=== PATIENT | male | born 1965 | race Caucasian/White ===

== ENCOUNTER 2025-02-21 09:42 | Emergency (ER) | payer SELFPAY ==
--- NOTE | 2025-02-21 | ECG_ITS ---
Test Reason : MED NON-COMPLIANCE Blood Pressure : */* mmHG Vent. Rate : 59 BPM Atrial Rate : 59 BPM P-R Int : 198 ms QRS Dur : 130 ms QT Int : 394 ms P-R-T Axes : 74 -20 -47 degrees QTcB Int : 390 ms Sinus bradycardia Left ventricular hypertrophy with QRS widening and repolarization abnormality ( Nicholas product ) Abnormal ECG No previous ECGs available Referred By: Generic ED Physician Electronically Signed By: CHASE DELGADO
--- NOTE | ~2025-02-21 | US_ITS ---
CLINICAL HISTORY: rule out DVT, SWELLING Venous duplex ultrasound left lower extremity Comparison: None Findings: The visualized deep veins are fully compressible with normal Doppler color flow and spectral tracings. 32 mm Altamirano's cyst is present. Within the posteromedial calf in the area of clinical tenderness there is a 10.8 x 1.8 x 5.7 cm fluid collection. IMPRESSION: 1. Negative for left lower extremity deep vein thrombosis. 2. Altamirano's cyst. 3. Fluid collection within the calf. This may represent hematoma or abscess. This document has been electronically signed by: Marcin Noel MD on 02/21/2025 12:48:43
[2025-02-21 10:09] VITALS: BP 129/91; PULSE 64; RESP 20; TEMP 37.2; O2SAT 96; BMI 36.3
[2025-02-21 11:02] LABS: MANUAL DIFF FLAG NO
[2025-02-21 11:03] LABS: Basophils Absolute Auto 0.1 X10*3/uL (0.0-0.2); Basophils Percent Auto 0.7 % (0-2); Eosinophils Absolute Auto 0.2 X10*3/uL (0.0-0.4); Eosinophils Percent Auto 2.6 % (0-4); Hematocrit 38.4 % (42.0-52.0); Hemoglobin 13.3 g/dl (14.0-18.0); Imm Gran Abs Auto 0.03 X10*3/uL (0.00-0.03); Imm Gran Pct Auto 0.4 % (0.0-0.4); Lymphocytes Percent Auto 23.1 % (20-40); Mean Corpuscular HGB Conc 34.6 g/dl (31.0-36.0); Mean Corpuscular Hemoglobin 28.4 pg (27.0-33.0); Mean Corpuscular Volume 81.9 fL (80.0-98.0); Mean Platelet Volume 8.9 fL (9.4-12.4); Monocytes Absolute Auto 0.7 X10*3/uL (0.1-1.2); Monocytes Percent Auto 8.3 % (2-11); Neutrophils Absolute Auto 5.5 x10*3/uL (2.0-8.3); Neutrophils Percent Auto 64.9 % (45-73); Platelet Count 281 X10*3/uL (160-400); Red Blood Count 4.69 X10*6/uL (4.60-5.80); Red Cell Distribution Width 13.7 % (11.0-16.0); White Blood Count 8.4 X10*3/uL (4.8-10.8)
[2025-02-21 11:08] LABS: Prothrombin Time 11.8 SEC (10.9-12.4)
[2025-02-21 11:16] LABS: Alanine Aminotransferase 24 U/L (0-40); Alkaline Phosphatase 81 U/L (39-117); Anion Gap 13 (12-20); Aspartate Amino Transferase 22 U/L (5-37); Bilirubin Total 0.3 mg/dL (0.0-1.0); Blood Urea Nitrogen 12 mg/dL (9-16); Calcium 9.6 mg/dL (8.4-10.2); Carbon Dioxide 25 mmol/L (22-29); Chloride 105 mmol/L (96-108); Creatinine Clr Calc Pharmacy 122.3; Estimated Glomerular Filt Rate > 60; Glucose Random 99 mg/dL (60-115); Potassium 4.3 mmol/L (3.3-5.1); Sodium 139 mmol/L (135-145)
--- NOTE | 2025-02-21 12:39 | ED_ITS ---
HPI - Extremity Problem General Chief complaint: Extremity Injury, Lower Stated complaint: left leg swollen Time Seen by Provider: 02/21/25 12:39 Source: patient Mode of arrival: ambulatory Limitations: no limitations History of Present Illness ED Provider: Yair Christie PA-C HPI Narrative: 59 yo male with history of HLD, hx cardiac arrest in the past, hx paroxysmal afib not on anticoagulation who presents to the ER for evaluation of left lower leg pain and swelling for the last 2-3 weeks. He states it feels like he went to the gym too hard and the muscle is strained. The pain is starting to radiate from the proximal calf down to the foot. The lower leg is swollen. No numbness or tingling. no chest pain or SOB. no hx DVT in the past. No recent travel. No injury. he works on his feet all day and has worsening pain after being on his feet for prolonged amount of time. MD Complaint: extremity pain and extremity swelling Onset (ago): week(s) Pain Consistency: constant Location: left and lower extremity Quality: aching Radiation: distal Relieving factors: rest Exacerbating factors: weight bearing and palpation Associated symptoms: denies other symptoms Related Data Previous Rx's ?Medication ?Instructions ?Recorded cyclobenzaprine 10 mg tablet 10 mg PO BID PRN muscle spasm #7 02/21/25 tabs naproxen 500 mg tablet 500 mg PO BID PRN pain #20 tabs 02/21/25 Allergies Allergy/AdvReac Type Severity Reaction Status Date / Time Penicillins [PCN] Allergy Rash Verified 02/21/25 10:13 Review of Systems 2 Review of Systems: Yes all other systems are reviewed and are negative [facility] Social History Social History Smoked in Last 30 Days: No Use of substances other than those prescribed or required for medical reasons: No Advance Directives: No Advance Directives Information Provided: Yes Physical Exam 2 Vital Signs: Vital Signs: Last Vital Signs Temp 98.9 F 02/21/25 13:40 Pulse 64 02/21/25 13:40 Resp 20 02/21/25 13:40 BP 129/91 H 02/21/25 13:40 Pulse Ox 96 02/21/25 13:40 O2 Del Method Room Air 02/21/25 13:40 BMI result Body Mass Index 36.3 Appearance: Alert. Oriented X3. No acute distress. HEENT: normal inspection CVS: Normal heart rate and rhythm. Pulses normal. Respiratory: No respiratory distress. speaking in complete sentences Skin: Skin warm and dry. Normal skin color. Normal skin turgor. No rashes. Extremities: left lower leg more swollen than right lower leg, 1+ edema. tenderness to the proximal medial calf without overlying erythema. no induration or fluctuance. popliteal fullness on the left. NV intact distally Neuro: Oriented X 3. No motor deficit. No sensory deficit. steady gait Medical Decision Making Medical Decision Making [facility] Narrative: 59 yo male presenting with nontrauamtic left lower leg pain x2-3 weeks. US showing a 10x2x5 fluid collection c/w either abscess or hematoma. clinically abscess less likely without overlying signs of infection, no leukocytosis on labs. discussed possible needle aspiration w/ Dr. Archer and decision made to treat with conservative management today rather than introduce risks of infection and bleeding. leg wrapped in pastor wrap for compression. patient counseled on dx and tx along w/ return precautions. stable for d/c home - will refer to ortho for further evaluation as well. pt agrees w/ plan and all questions answered Differential Diagnosis Differential Diagnoses: The differential diagnosis associated with the presentation includes DVT, muscle strain, hematoma, abscess, muscle tear, bakers cyst, compartment syndrome Lab Data [facility] Lab Attestation statement: I reviewed the patient's lab results. mild anemia 02/21/25 10:58 02/21/25 10:58 Labs: Lab Results 02/21/25 Range/Units 10:58 WBC 8.4 (4.8-10.8) X10*3/uL RBC 4.69 (4.60-5.80) X10*6/uL Hgb 13.3 L (14.0-18.0) g/dl Hct 38.4 L (42.0-52.0) % MCV 81.9 (80.0-98.0) fL MCH 28.4 (27.0-33.0) pg MCHC 34.6 (31.0-36.0) g/dl RDW 13.7 (11.0-16.0) % Plt Count 281 (160-400) X10*3/uL MPV 8.9 L (9.4-12.4) fL Immature Gran % (Auto) 0.4 (0.0-0.4) % Neut % (Auto) 64.9 (45-73) % Lymph % (Auto) 23.1 (20-40) % [place] % (Auto) 8.3 (2-11) % Eos % (Auto) 2.6 (0-4) % Baso % (Auto) 0.7 (0-2) % Lymph # (Auto) 2.0 (1.2-4.9) X10*3/uL [place] # (Auto) 0.7 (0.1-1.2) X10*3/uL Eos # (Auto) 0.2 (0.0-0.4) X10*3/uL Baso # (Auto) 0.1 (0.0-0.2) X10*3/uL Abs Immat Gran (auto) 0.03 (0.00-0.03) X10*3/uL Absolute Neuts (auto) 5.5 (2.0-8.3) x10*3/uL Absolute Nucleated RBC 0.000 (0.0-0.012) X10*3/uL Nucleated RBC % (auto) 0.0 (0.0-0.2) /100WBC PT 11.8 (10.9-12.4) SEC INR 1.0 (0.9-1.1) Sodium 139 (135-145) mmol/L Potassium 4.3 (3.3-5.1) mmol/L Chloride 105 (96-108) mmol/L Carbon Dioxide 25 (22-29) mmol/L Anion Gap 13 (12-20) BUN 12 (9-16) mg/dL Creatinine 0.77 (0.5-1.4) mg/dL Estim Creat Clear Calc 122.3 Estimated GFR > 60 Random Glucose 99 (60-115) mg/dL Calcium 9.6 (8.4-10.2) mg/dL Total Bilirubin 0.3 (0.0-1.0) mg/dL AST 22 (5-37) U/L ALT 24 (0-40) U/L Alkaline Phosphatase 81 (39-117) U/L Total Protein 7.0 (6.5-8.0) g/dL Albumin 4.0 (3.5-5.0) g/dL Independent Interpretation I performed an independent interpretation of an: EKG and Ultrasound Interpretation: simple appearing fluid collection in the lower leg, no cobblestoning ekg with sinus bradycardia, hr 59, normal SC interval, LVH changes with repolarization in the precordial leads Radiology Impression Discussion of test interpretation with radiology: I have reviewed the radiologist's reading. Radiologist Impression: CLINICAL HISTORY: rule out DVT, SWELLING Venous duplex ultrasound left lower extremity Comparison: None Findings: The visualized deep veins are fully compressible with normal Doppler color flow and spectral tracings. 32 mm Altamirano's cyst is present. Within the posteromedial calf in the area of clinical tenderness there is a 10.8 x 1.8 x 5.7 cm fluid collection. IMPRESSION: 1. Negative for left lower extremity deep vein thrombosis. 2. Altamirano's cyst. 3. Fluid collection within the calf. This may represent hematoma or abscess. External Record Review External record reviewed: Outpatient record, Prior outpatient labs and Prior outpatient radiology Tests considered The following testing was considered but not selected: CT scan considered but deferred as suspicion for abscess is very low Prescription Management I considered prescription management with: Pain Medication and Antibiotic Chronic Conditions Patient?s care impacted by: Other (HLD, afib) Critical Care Time Critical Care Time Critical Care Time: No Discharge Plan Discharge Clinical Impression: Hematoma of lower leg Patient Disposition: Home, Self-Care Instructions: Hematoma (ED) Additional Instructions: your lab work was reassuring your ultrasound showed a fluid collection, likely a hematoma (blood collection) and NOT an infection as there is no redness over the area and your labs were normal recommend rest, elevation when possible, PASTOR wrap for compression take the prescribed medicatons as needed for pain and muscle spasm recommend following up with orthopedics for further evaluation follow up with your PCP as well If you develop new or worsening symptoms call 911 or come back to the ER for further evaluation. CLINICAL HISTORY: rule out DVT, SWELLING Venous duplex ultrasound left lower extremity Comparison: None Findings: The visualized deep veins are fully compressible with normal Doppler color flow and spectral tracings. 32 mm Altamirano's cyst is present. Within the posteromedial calf in the area of clinical tenderness there is a 10.8 x 1.8 x 5.7 cm fluid collection. IMPRESSION: 1. Negative for left lower extremity deep vein thrombosis. 2. Altamirano's cyst. 3. Fluid collection within the calf. This may represent hematoma or abscess. Prescriptions: New naproxen 500 mg tablet 500 mg PO BID PRN (Reason: pain) Qty: 20 0RF cyclobenzaprine 10 mg tablet 10 mg PO BID PRN (Reason: muscle spasm) Qty: 7 0RF Referrals: [facility] [Provider Group] (left calf fluid collection c/w hematoma) [facility] [Primary Care Provider] - Interventions: ED Discharge Assessment Last Done: 02/21/25 13:40 Discharge Date/Time: 02/21/25 13:42 Print Language: Hungarian
[2025-02-21 13:40] VITALS: BP 129/91; PULSE 64; RESP 20; TEMP 37.2; O2SAT 96
== END 2025-02-21 13:42 | disposition home or self-care (01) ==
PROVIDERS: Emergency Provider Emergency Medicine; PCP Dentist General Practice
DX: R60.0 Localized edema (principal); R00.1 Bradycardia, unspecified; M79.605 Pain in left leg; Z79.899 Other long term (current) drug therapy
CPT/HCPCS: 36415; 80053; 85025; 85610; 93005; 93971; 99284

== ENCOUNTER → 2025-02-21 10:37 | Outpatient (BNV) | payer SELFPAY | PROVIDERS: Emergency Provider Emergency Medicine; PCP Dentist General Practice; Visit Provider Radiology Diagnostic Radiology | DX: M71.22 Synovial cyst of popliteal space [Baker], left knee (principal) | CPT/HCPCS: 93971 ==

== ENCOUNTER → 2025-02-21 10:50 | Outpatient (BNV) | payer SELFPAY | PROVIDERS: Emergency Provider Emergency Medicine; PCP Dentist General Practice; Visit Provider Internal Medicine | DX: R00.1 Bradycardia, unspecified (principal); I51.7 Cardiomegaly | CPT/HCPCS: 93010 ==

== ENCOUNTER 2025-03-06 09:03 | Emergency (ER) | payer SELFPAY ==
--- NOTE | ~2025-03-06 | XR_ITS ---
CLINICAL HISTORY: fish hook distal 4th finger 3 view right 4th digit Comparison: None Findings: Bones intact. No dislocations. No significant arthritic change. No erosions. There is a 4 mm curvilinear metallic focus within the soft tissues at the anterior aspect of the distal phalanx of the 4th digit. IMPRESSION: 4th digit foreign body. No osseous injury. This document has been electronically signed by: Marcin Noel MD on 03/06/2025 11:35:20
[2025-03-06 09:04] VITALS: BP 152/81; PULSE 78; RESP 18; TEMP 36.6; O2SAT 96; BMI 35.5
--- OUTSIDE RECORDS SUMMARY | 2025-03-06 09:27 | XMS_ITS | Clinical Summary ---
Author Organization [facility] Address [address] [place] [address] Care Team Providers Care Welder Tack Name Role Phone Ramos Baltazar MD Primary Care Provider [phone] Source Comments PLEASE NOTE, if this patient is a minor, it may be UNLAWFUL to discuss sensitive information that is contained in these records (such as FAMILY PLANNING, MENTAL HEALTH or SUBSTANCE ABUSE) with the minor patient's parent or other person without the patient's specific authorization.[facility] Allergies Active Allergy Reactions Criticality Noted Date Comments Penicillins Rash 09/05/2017 Medications nicotine, polacrilex, (NICORETTE) 2 mg gumIndications:E ncounter for tobacco use cessation counseling Weeks 1-6: 1 piece of gum every 1-2 hours; chew at least 9 pieces per day during the first 6 weeks to increase chances of quitting. Weeks 7-9: 1 piece of gum every 2-4 hours. Weeks 10-12: 1 piece of gum every 4-8 hours. 380 Each 1 Active cetirizine (ZYRTEC) 10 mg tabletIndication s:Seasonal allergies Take 1 Tablet by mouth once daily 90 Tablet 1 3 Active predniSONE (DELTASONE) 20 mg tabletIndication s:Chest congestion Take 2 Tablets by mouth once daily 10 Tablet 3 Active atorvastatin (LIPITOR) 20 mg tabletIndication s:Hypercholester olemia TAKE 1 TABLET BY MOUTH EVERY DAY(PLEASE SEND 90 DAY RX--- REQUIRED BY INSURNACE) 90 Tablet 3 Active escitalopram oxalate (LEXAPRO) 5 mg tabletIndication s:Adjustment reaction with anxiety and depression TAKE 1 TABLET BY MOUTH EVERY DAY 90 Tablet 4 Active ELIQUIS 5 mg tab Take 5 mg by mouth 2 (two) times daily 4 Active metoprolol tartrate (LOPRESSOR) 25 mg tablet Take 25 mg by mouth once daily 4 Active traZODone (DESYREL) 50 mg tabletIndication s:Insomnia, unspecified type TAKE 1 TABLET BY MOUTH AT BEDTIME 90 Tablet 5 Active Active Problems Problem Noted Date Diagnosed Date New onset atrial fibrillation ([facility]) 04/03/20 24 Overview (06/24/2024): Sees Cardiology Dr Maria Teresa Mancia On Eliquis 5mg bid and Metoprolol 25 mg po qd Pt was cardioverted with 200 J in to asystole which lasted approximately 20 secs. Interim Transcutaneous pacing was initiated . CPR performed with Epinephrine given -noted to go into monomorphic VT for about 25 secs . Successfully defibrillated and resuscitated back to sinus rhythm with frequent ventriculat ectopy. Given 150 mg bolus of Amiodarone. Discharged on Apixaban and Metoprolol [facility] Admission 04/02/2024 emergency department for evaluation of poison laisha all over . heart rate was found to be elevated, as high as 150s..potline monitor and he was found to be in atrial flutter versus atrial fibrillation with a rapid rate. Chest x-ray: Minimal scarring at the left lung base appears stable. EKG:Atrial fibrillation with rapid ventricular response. Received 40 mg p.o. prednisone, a total of 35 mg IVP diltiazem, 1L NS, 2 g magnesium sulfate and 1L NS. The decision was made to admit patient for medical management. Patient received a total of 35 mg IVP diltiazem and was on IV Cardizem drip . Patient received one-time dose of 5 mg p.o. Eliquis and Eliquis was sent to his preferred pharmacy for him to take 5 mg p.o. twice daily. Recommendations are for patient to remain in the hospital however he left AMA Patient should follow-up with PCP and/or cardiology for an echocardiogram and he will potentially need a cardioversion if he remains in atrial fibrillation uncontrolled. 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 Patient seen in Ed, CT scan revealed Right parotid mass and lymphadenopathy. Patient referred to oncology for biopsy of area. 10/03/17 - Patient seen by ENT, Biopsy of area performed Right Parotid 3 cm nodule Deviated septum to 4+ ? Possible Lymphoma, FU in one week. 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 Scheduled fo surgery 01/13/18 at [facility] for removal Benign Immunizations Immunization Administration Dates Next Due Flu, Preservative Free 07/01/2018 INFLUENZA, SEASONAL, INJECTABLE 07/01/2018 TDAP 09/05/2017 Social History Tobacco Use Types Packs/Day Years Used Date Smoking Tobacco: Every Day Cigarettes Smokeless Tobacco: Never Tobacco Cessation:Ready to Q uit: No; Counseling Given: Yes Comments:3/4 a pack a day Alcohol Use Standard Drinks/Week Comments Yes 12 (1 standard drink = 0.6 oz pu re alcohol) social Social Connections Answer Date Recorded Connectedness 0 09/25/2021 Financial Resource Strain Answer Date R ecorded Financial Resource Strain 0 2020 Stress Answer Date Recorded Stress 0 09/25/2021 Physical Activity Answer Date Recorded Physical Activity 0 06/15/2019 Food Insecurity Answer Date Recorded Food 0 09/25/2021 Transportation Needs Answer Date Record ed Transportation 0 09/25/2021 Housing Stability Answer Date Recorded Housing 0 09/25/2021 Safety and Environment Answer Date Pedro rded Safety 0 09/25/2021 Utilities Answer Date Recorded Utilities 0 09/25/2021 Employment Answer Date Recorded Employment 0 06/15/2019 Sex and Gender Information Value Date Recorded Sex Assigned at Male 09/05/2017 9:35 AM PST Legal Sex Male 7:11 AM PDT Gender Identity Male 09/05/2017 9:35 AM PST Sexual Orientation Straight 09/05/2017 9: 35 AM PST Last Filed Vital Signs Vital Sign Reading Time Taken Comments Blood Pressure 100/60 03/23/2022 8:39 AM EDT Pulse 78 03/23/2022 8:39 AM EDT Temperature 36.9 ??C (98.4 ??F) 03/23/2022 8:39 AM ED T Respiratory Rate 18 03/23/2022 8:39 AM EDT Oxygen Saturation - - Inhaled Oxygen Concentration - - Weight 102.5 kg (226 lb) 03/23/2022 8:39 AM EDT Height 169 cm (5' 6.54 ) 03/23/2022 8:39 AM EDT Body Mass Index 35.89 03/23/2022 8:39 AM EDT Plan of Treatment Health Maintenance Due Date Last Done Comments Imm-Hepatitis B (1 of 3 - 19 + 3-dose series) 12/23/1986 Imm-Pneumococcal (1 of 2 - PCV) 12/23/1986 CT Colonography 12/23/2012 Colonoscopy 12/23/2012 Colorectal Cancer Screening 12/23/2012 FIT/gFOBT 12/23/2012 Fecal DNA 12/23/2012 Flexible Sigmoidoscopy 12/23/2012 Anxiety Screening 09/25/2022 09/25/2021 Annual Preventive Care Visit 12/20/202211/2021, 09/23/2018, 09/05/2017 Lipid Screening 12/20/2022 12/20/2021, 09/11/2017 Hypertension Screening (#1) 03/23/2023 Imm-Zoster, Recombinant (2 of 2) 08/27/2023 07/02/20 Tobacco Cessation Counseling (#1) 03/24/2024 03/25/2023, 09/25/2021, 09/23/2018 Tobacco Screening 03/25/2024 03/25/2023, , 09/23/2018 [id number] ( season) 2024 021, 08/21/2021 Imm-Influenza (#1) 2024 07/02/2023, 0 07/01/2018, 07/01/2018 Alcohol and Drug Screen 10/21/2024 12/20/2021, 09/25 Depression Annual Screen 10/21/2024 09/25/2021 Diabetes Screening 12/20/2024 12/20/2021, 0 12/20/2021, 09/11/2017, Additional history exists Imm-DTaP/Tdap/Td (2 - Td or Tdap) 09/05/2027 017 HIV Screening Completed 12/20/2021 Hepatitis C Screening Completed 12/20/2021 Procedures Procedure Name Priority Date/Time Associated Diagnosis Comments IMAGING SCANNED DOCUMENT 02/21/2025 3:00 AM EDT IMAGING SCANNED DOCUMENT 02/21/2025 3:00 AM EDT IMAGING SCANNED DOCUMENT 12/29/2024 3:00 AM EDT HIV 1/2 AG & AB W/RFLX (4TH GEN) Routine 12/20/2021 9:22 AM EST Health care maintenance HEPATITIS C AB W/RFLX HCV RNA, QT, RT PCR Routine 12/20/2021 9:22 AM EST Health care maintenance COMPREHENSIVE METABOLIC PANEL Routine 12/20/2021 9:22 AM EST Routine general medical examination at a health care facility Other hyperlipidemia LIPID PANEL Routine 12/20/2021 9:22 AM EST Routine general medical examination at a health care facility Other hyperlipidemia from Last 3 Months or Most Recently Relevant to Health Maintenance Results * IMAGING SCANNED DOCUMENT (02/21/2025 3:00 AM EDT) Only the most recent of3 resultswithin the time period is included. 02/21/2025 3:00 AM EDT Ramos Baltazar MD SCAN IMAGING Final Result * HEPATITIS C AB W/RFLX HCV RNA, QT, RT PCR (12/20/2021 9:22 AM EST) HEPATITIS C ANTIBODY NON-REACT CYNDY NON-REACT CYNDY [facility] SIGNAL TO CUT-OFF 0.02 <1.00 [facility] Comment: HCV antibody was non-reactive. There is no laboratory evidence of HCV infection. In most cases, no further action is required. However, if recent HCV exposure is suspected, a test for HCV RNA (test code 57568) is suggested. For additional information please refer to http://education.B[employer]That[employer]ruik/faq/KZC97b4 (This link is being provided for informational/ educational purposes only.) Blood Blood / Unknown 12/20/2021 9 :22 AM EST 12/20/2021 9:24 AM EST Narrative [facility] - 12/20/2021 10:13 PM EST FASTING:NO Ramos Baltazar MD LAB - BLOOD DRAW Final Result Performing Organization Address [facility] Co de Phone Number [facility] [address] [address], [facility] [address] [address] * HIV 1/2 AG & AB W/RFLX (4TH GEN) (12/20/2021 9:22 AM EST) HIV AG/AB, 4TH GEN NON-REAC TIVE NON-REAC TIVE [facility] Comment: HIV-1 antigen and HIV-1/HIV-2 antibodies were not detected. There is no laboratory evidence of HIV infection. PLEASE NOTE: This information has been disclosed to you from records whose confidentiality may be protected by state law. ??If your state requires such protection, then the state law prohibits you from making any further disclosure of the information without the specific written consent of the person to whom it pertains, or as otherwise permitted by law. A general authorization for the release of medical or other information is NOT sufficient for this purpose. ?? For additional information please refer to http://education.BidThatProject.Altruik/faq/BNL514 (This link is being provided for informational/ educational purposes only.) The performance of this assay has not been clinically validated in patients less than 2 years old. Blood Blood / Unknown 12/20/2021 9 :22 AM EST 12/20/2021 9:24 AM EST Narrative [facility] - 12/20/2021 10:13 PM EST FASTING:NO Ramos Baltazar MD LAB - BLOOD DRAW Final Result Performing Organization Address [facility]/ZIP Co de Phone Number [facility] [address] [address], [facility] [address] [address] * (ABNORMAL) LIPID PANEL (12/20/2021 9:22 AM EST) CHOLESTEROL, TOTAL 250(H) <200 mg/dL [facility] HDL CHOLESTEROL 39(L) > OR = 40 mg/dL [facility] TRIGLYCERIDES 310(H) <150 mg/dL [facility] Comment: If a non-fasting specimen was collected, consider repeat triglyceride testing on a fasting specimen if clinically indicated. Noa et al. J. of Clin. Lipidol. 2015;9:129-169. LDL-CHOLESTEROL 163(H) 99 mg/dL (calc) [facility] Comment: Reference range: <100 Desirable range <100 mg/dL for primary prevention; ?? <70 mg/dL for patients with CHD or diabetic patients with > or = 2 CHD risk factors. LDL-C is now calculated using the Avelino-Ayo calculation, which is a validated novel method providing better accuracy than the Friedewald equation in the estimation of LDL-C. Avelino SS et al. KHADIJAH. 2013;310(19): 2764-4348 (http://education.Peak [employer] Technologies/faq/XTV587) CHOL/HDLC RATIO 6.4(H) <5.0 (calc) [facility] NON-HDL CHOLESTEROL 211(H) <130 mg/dL (calc) [facility] Comment: For patients with diabetes plus 1 major ASCVD risk factor, treating to a non-HDL-C goal of <100 mg/dL (LDL-C of <70 mg/dL) is considered a therapeutic option. Blood Blood / Unknown 12/20/2021 9 :22 AM EST 12/20/2021 9:24 AM EST Narrative [facility] - 12/20/2021 10:13 PM EST FASTING:NO Ramos Baltazar MD LAB - BLOOD DRAW Final Result [facility] [address] [address], [facility] [address] [address] * COMPREHENSIVE METABOLIC PANEL (12/20/2021 9:22 AM EST) GLUCOSE 96 65 - 139 mg/dL [facility] Comment: ?Non-fasting reference interval UREA NITROGEN (BUN) 13 7 - 25 mg/dL [facility] CREATININE (blood) 0.90 0.70 - 1.33 mg/dL [facility] Comment: For patients >49 years of age, the reference limit for Creatinine is approximately 13% higher for people identified as -[place]atem[place]. GFR ESTIMATED 97 > OR = 60 mL/min/1 .73m2 [facility] EGFR 113 > OR = 60 mL/min/1 .73m2 [facility] BUN/CREATININE RATIO NOT APPLICABLE [facility] SODIUM 136 135 - 146 mmol/L [facility] POTASSIUM 4.4 3.5 - 5.3 mmol/L [facility] CHLORIDE 102 98 - 110 mmol/L [facility] CARBON DIOXIDE 26 20 - 32 mmol/L [facility] CALCIUM 9.8 8.6 - 10.3 mg/dL [facility] PROTEIN, TOTAL 6.9 6.1 - 8.1 g/dL [facility] ALBUMIN 4.5 3.6 - 5.1 g/dL [facility] GLOBULIN 2.4 1.9 - 3.7 g/dL (calc) [facility] ALBUMIN/GLOBULIN RATIO 1.9 1.0 - 2.5 (calc) [facility] BILIRUBIN, TOTAL 0.5 0.2 - 1.2 mg/dL [facility] ALKALINE PHOSPHATASE 60 35 - 144 U/L [facility] AST 12 10 - 35 U/L [facility] ALT 15 9 - 46 U/L [facility] Blood Blood / Unknown 12/20/2021 9 :22 AM EST 12/20/2021 9:24 AM EST Narrative [facility] - 12/20/2021 10:13 PM EST FASTING:NO Ramos Baltazar MD LAB - BLOOD DRAW Edited Result - Final [facility] [address] [facility] [address] [place] [address], [facility] 200 [facility] [address] [address] from Last 3 Months or Most Recently Relevant to Health Maintenance [place] [employer] [facility] [employer] [employer] [facility] [employer] Care Teams Welder Tack Relationship Specialty Start Date End Date Ramos Baltazar MD [address] [place] [address] PCP - General Internal Medicine 07/26/21
--- OUTSIDE RECORDS SUMMARY | 2025-03-06 09:27 | XMS_ITS | Clinical Summary ---
Author Organization [facility] Address [address] [place] [address] Phone Care Team Providers Care Insert Cutter Name Role Phone Ramos Baltazar MD Primary Care Provider [phone] Allergies Active Allergy Reactions Criticality Noted Date Comments Penicillins Rash 12/29/2024 Medications methocarbamoL (ROBAXIN) 500 mg tablet Take 1 tablet (500 mg total) by mouth 2 (two) times a day for 10 days. 20 tablet 12/29/2024 Active Active Problems Problem Noted Date Diagnosed Date Parotid neoplasm Overview (12/29/2024): DX:Parotid neoplasm Encounters Date Type Department Care Team Description 12/29/2024 12:34 PM EDT - 12/29/2024 1:57 PM EDT Emergency [facility] Emergency [address] [place] [address] Acute bilateral low back pain without sciatica (Primary Dx) Discharge Disposition: Home or Self Care from Last 3 Months Medical History Medical History Date Comments Anxiety and depression DX:Anxiet y and depression Social History Tobacco Use Types Packs/Day Years Used Date Smoking Tobacco: Every Day Cigarettes Smokeless Tobacco: Never Alcohol Use Standard Drinks/Week Comments Not Asked 0 (1 standard drink = 0.6 oz pur e alcohol) Sex and Gender Information Value Date Recorded Sex Assigned at Male 12/29/2024 12:45 PM EDT Legal Sex Male 11:17 PM EST Gender Identity Male 12/29/2024 12:45 PM EDT Sexual Orientation Straight 12/29/2024 12 :45 PM EDT Obstetrics History Last Filed Vital Signs Vital Sign Reading Time Taken Comments Blood Pressure 134/85 12/29/2024 12:01 PM EDT Pulse 69 12/29/2024 12:01 PM EDT Temperature 36.4 ??C (97.5 ??F) 12/29/2024 12:01 PM E DT Respiratory Rate 19 12/29/2024 12:01 PM EDT Oxygen Saturation 96% 12/29/2024 12:01 PM EDT Inhaled Oxygen Concentration - - Weight 102 kg (225 lb) 12/29/2024 12:01 PM EDT Height 170.2 cm (5' 7 ) 12/29/2024 12:01 PM EDT Body Mass Index 35.24 12/29/2024 12:01 PM EDT Plan of Treatment Health Maintenance Due Date Last Done Comments Hepatitis B Vaccines (1 of 3 - 19+ 3-dose series) 12/23/1986 Pneumococcal Vaccine: 50+ Years (1 of 2 - PCV) 12/23/1986 Pneumococcal Vaccine: Pediatrics (0 to 5 Years) and At-Risk Patients (6 to 64 Years) (1 of 2 - PCV) 12/23/1986 Zoster Vaccines (2 of 2) 08/27/2023 07/02/2023 Colorectal Cancer Screening: Colonoscopy 11/19/2023 Depression Screening 11/19/2023 HIV Screening 11/19/2023 Social Influencers of Health Screening 11/19/2023 COVID-19 Vaccine (3 - 2023-2 5 season) 2024 09/25/2021, 08/21/2021 Influenza Vaccine (Season Ended) 2025 07/02/2023, 07/01/2018 Cholesterol Screening (Lipid Panel) 12/20/2026 12/20/2021, 12/20/2021 DTaP,Tdap,and Td Vaccines (2 - Td or Tdap) 09/05/2027 09/05/2017 Hepatitis C Screening Completed 12/20/2021 HIB Vaccines Aged Out No longer eligi ble based on patient's age to complete this topic HPV Vaccines Aged Out No longer eligi ble based on patient's age to complete this topic Hepatitis A Vaccines Aged Out No long er eligible based on patient's age to complete this topic IPV Vaccines Aged Out No longer eligi ble based on patient's age to complete this topic MMR Vaccines Aged Out No longer eligi ble based on patient's age to complete this topic Meningococcal ACWY Vaccine Aged Out N o longer eligible based on patient's age to complete this topic Meningococcal B Vaccine Aged Out No l onger eligible based on patient's age to complete this topic RSV Immunization Patients Under 20 months Aged Out No longer eligible b ased on patient's age to complete this topic Varicella Vaccines Aged Out No longer eligible based on patient's age to complete this topic Procedures Procedure Name Priority Date/Time Associated Diagnosis Comments XR LUMBAR SPINE 4+ VIEWS STAT 12/29/2024 12:25 PM EDT from Last 3 Months Results * XR Lumbar Spine 4+ Views (12/29/2024 12:25 PM EDT) Anatomical Region Laterality Modality Spine, L-spine Radiographic Andreea ging 12/29/2024 1:30 PM EDT Impressions 12/29/2024 1:31 PM EDT FINDINGS/IMPRESSION: Views of the lumbar spine demonstrate endplate irregularities throughout. ??There is no acute compression fracture. ??Facet arthropathy most prominent at lower levels. ??Aortic vascular calcifications. ??MRI could provide further sensitivity if there is persisting concern for fracture. -------- FINAL REPORT -------- Dictated By: Luis Encarnacion Dictated Date: 12/29/2024 13:30 ET Assigned Physician: Luis Encarnacion Reviewed and Electronically Signed By: Luis Encarnacion Signed Date: 12/29/2024 13:31 ET Workstation ID: [id number] Transcribed By: Self Edit Transcribed Date: 12/29/2024 13:30 ET Narrative 12/29/2024 1:31 PM EDT XR LUMBAR SPINE 4+ VIEWS INDICATION: pain lower back pain after twisting. TECHNIQUE: XR LUMBAR SPINE 4+ VIEWS COMPARISON: No priors available. Procedure Note Luis Encarnacion MD - 12/29/2024 XR LUMBAR SPINE 4+ VIEWS INDICATION: pain lower back pain after twisting. TECHNIQUE: XR LUMBAR SPINE 4+ VIEWS COMPARISON: No priors available. IMPRESSION: FINDINGS/IMPRESSION: Views of the lumbar spine demonstrate endplateirregularities throughout. There is no acute compression fracture. Facetarthropathy most prominent at lower levels. Aortic vascularcalcifications. MRI could provide further sensitivity if there ispersisting concern for fracture. -------- FINAL REPORT -------- Dictated By: Luis Encarnacion Dictated Date: 12/29/2024 13:30 ET Assigned Physician: Luis Encarnacion Reviewed and Electronically Signed By: Luis Encarnacion Signed Date: 12/29/2024 13:31 ET Workstation ID: [id number] Transcribed By: Self Edit Transcribed Date: 12/29/2024 13:30 ET Darren Acuna DO IMG XR PROCEDURES Final Res ult from Last 3 Months [place] [id number] [place] [id number] GENERIC Care Teams Insert Cutter Relationship Specialty Start Date End Date Ramos Baltazar MD [address] [place] [address] PCP - General 04/09/24
--- NOTE | 2025-03-06 09:38 | ED.GENADULT ---
HPI - General Adult General Chief complaint: Extremity Problem Stated complaint: Fish hook in finger Time Seen by Provider: 03/06/25 09:37 Source: patient Mode of arrival: ambulatory Limitations: no limitations History of Present Illness ED Provider: TAMIKO Santiago HPI narrative: 59 yo ambidextrous male presents to the ED due to FB in R 4th digit. Accidentally got fish hook stuck in finger around 11pm last night. Attempted to removed on his own but was unable due to karol. Unsure last Tdap, agreeable to update today. Denies other complaints. complaint: foreign body finger Onset (ago): hour(s) Related Data Previous Rx's ?Medication ?Instructions ?Recorded cyclobenzaprine 10 mg tablet 10 mg PO BID PRN muscle spasm #7 02/21/25 tabs naproxen 500 mg tablet 500 mg PO BID PRN pain #20 tabs 02/21/25 sulfamethoxazole 800 1 tab PO BID #14 tabs 03/06/25 mg-trimethoprim 160 mg tablet (Bactrim DS) Allergies Allergy/AdvReac Type Severity Reaction Status Date / Time Penicillins [PCN] Allergy Rash Verified 03/06/25 09:07 Review of Systems Review of Systems: As per HPI Yes all other systems are reviewed and are negative PMFSH Social History Social History Smoked in Last 30 Days: Yes Use of substances other than those prescribed or required for medical reasons: Yes Substance Use Type: Marijuana Substance Use Frequency: Occasionally Advance Directives: No Advance Directives Information Provided: No Physical Exam ED Vital Signs: Vital Signs - 24 hr 03/06/25 09:04 03/06/25 11:15 03/06/25 11:19 Temperature 97.8 F 97.8 F Pulse Rate 78 103 H 103 H Respiratory Rate 18 18 18 Blood Pressure 152/81 H 158/93 H 158/93 H Pulse Oximetry 96 95 95 Oxygen Delivery Method Room Air Room Air BMI result Body Mass Index 35.5 Vital signs have been reviewed and appear to be correct. Blood pressure normal. Heart rate normal. Respiratory rate normal. Temperature normal. Oxygen saturation normal. Extrem Right upper extremity: Extremity exam: right hand Details: vascular exam Details: radial pulse present and normal capillary refill, normal ROM of fingers and foreign body Location: of the 4th digit Location: at the distal phalanx and on the ulnar aspect; not at the nailbed and not involving the fingernail Medications Administered Discontinued Medications Generic Name Dose Route Start Last Admin Trade Name Tiara PRN Reason Stop Dose Admin Diphtheria/Tetanus/Acell Pertussis 0.5 ml 03/06/25 10:03/06/25 10:24 Diphth,Pertus(Acell),Tet Adult 0.5 Ml Syringe IM 03/06/25 10:10 0.5 ml .ONCE ONE Administration Lidocaine HCl 10 ml 03/06/25 10:09 03/06/25 10:27 Lidocaine Hcl 1 % Mpf 5 Ml Vial INFILTRATI 03/06/25 10:10 10 ml ONCE ONE Administration Procedures Foreign Body Removal Time Out Performed: yes Site: right and hand Description of foreign body: fish hook Sedation/Analgesia: other (1% lidocaine) Technique: manual removal and incision made to facilitate removal Confirmed by:: direct visualization Complications: none Neurovascular: normal distal pulse, normal capillary fill, distal light touch sensation intact, distal motor function normal, no signs of compartment syndrome and no change from pre-procedure Medical Decision Making Medical Decision Making [facility] Narrative: 59 yo ambidextrous male presents to the ED due to FB in R 4th digit. Accidentally got fish hook stuck in finger around 11pm last night. On exam patient is awake, A+Ox3, VS WNL, afebrile, normal neurological exam without focal deficits, physical exam findings as above. Given reported symptoms and physical exam findings, initial differential includes but is not limited to foreign body finger, puncture wound, cellulitis. Tdap updated. X-ray notable for superficial foreign body ulnar side of right 4th finger. My interpretation is in agreement with the radiologist's interpretation. Hook removed with small incision as per procedure note, patient tolerated well, no complications. Dressing applied, wound care and return instructions discussed at bedside. Will treat with prophylactic antibiotics. Patient verbalized understanding of and agreement with plan. Differential Diagnosis Differential Diagnoses: The differential diagnosis associated with the presentation includes as per [facility] Admission/Observation Consideration of admission/observation: Escalation of care including admission/observation considered Patient would have been admitted to the hospital had their work up had any findings where hospital admission was appropriate and their clinical presentation warranted hospital admission. Independent Interpretation I performed an independent interpretation of an: Plain X-Ray Interpretation: Visible foreign body distal tip 4th finger Radiology Impression Discussion of test interpretation with radiology: I have reviewed the radiologist's reading. Radiologist Impression: CLINICAL HISTORY: fish hook distal 4th finger 3 view right 4th digit Comparison: None Findings: Bones intact. No dislocations. No significant arthritic change. No erosions. There is a 4 mm curvilinear metallic focus within the soft tissues at the anterior aspect of the distal phalanx of the 4th digit. IMPRESSION: 4th digit foreign body. No osseous injury. External Record Review External record reviewed: Inpatient record, Office record and Outpatient record Prescription Management I considered prescription management with: Antibiotic Discharge Plan Discharge Clinical Impression: Foreign body in skin of finger of right hand Patient Disposition: Home, Self-Care Instructions: Finger Laceration (ED) Additional Instructions: You were evaluated in the emergency department today for a fish hook to your finger. The fishhook was removed with a small incision. Your Tdap (tetanus) vaccine was updated at today's visit. You are being treated with prophylactic antibiotics to prevent infection, complete the full course as prescribed. Assess the area daily for signs of infection including redness, swelling, thick yellow drainage, redness streaking up your hand, fever and follow up with your PCP or return to the emergency department if these occur. You should avoid soaking hyou hand in water until the area has fully healed. Follow up with your PCP as needed. Return to the emergency department with any new or concerning symptoms. Prescriptions: New sulfamethoxazole-trimethoprim [Bactrim DS] 800-160 mg tablet 1 tab PO BID Qty: 14 0RF No Action naproxen 500 mg tablet 500 mg PO BID PRN (Reason: pain) Qty: 20 0RF cyclobenzaprine 10 mg tablet 10 mg PO BID PRN (Reason: muscle spasm) Qty: 7 0RF Interventions: ED Discharge Assessment Last Done: 03/06/25 11:19 Discharge Date/Time: 03/06/25 11:20 Print Language: Portuguese
[2025-03-06] MEDS: Diphth,Pertus(ACell),Tet Adult 0.5 ML SYRINGE IM (10:24)
[2025-03-06] MEDS: Lidocaine HCl 1 % MPF 5 ML VIAL 10 ML INFILTRATI (10:27)
[2025-03-06 11:15] VITALS: BP 158/93; PULSE 103; RESP 18; O2SAT 95
[2025-03-06 11:19] VITALS: BP 158/93; PULSE 103; RESP 18; TEMP 36.6; O2SAT 95
== END 2025-03-06 11:20 | disposition home or self-care (01) ==
PROVIDERS: Emergency Provider Emergency Medicine Emergency Medical Services
DX: S61.244A Puncture wound with foreign body of right ring finger without damage to nail, initial encounter (principal); W26.8XXA Contact with other sharp object(s), not elsewhere classified, initial encounter; W45.8XXA Other foreign body or object entering through skin, initial encounter; Y93.89 Activity, other specified; Y92.9 Unspecified place or not applicable; Y99.9 Unspecified external cause status; M79.5 Residual foreign body in soft tissue
CPT/HCPCS: 73140; 90471; 90715; 99284; J2003

== ENCOUNTER → 2025-03-06 10:09 | Outpatient (BNV) | payer SELFPAY | PROVIDERS: Emergency Provider Emergency Medicine Emergency Medical Services; Visit Provider Radiology Diagnostic Radiology | DX: S60.551A Superficial foreign body of right hand, initial encounter (principal); W45.8XXA Other foreign body or object entering through skin, initial encounter | CPT/HCPCS: 73140 ==

== ENCOUNTER 2025-07-12 11:01 | Emergency (ER) | payer OTHER, SELFPAY ==
--- NOTE | ~2025-07-12 | XR_ITS ---
EXAMINATION: XR LUMBOSACRAL SPINE CLINICAL INFORMATION: L sided back pain s/p heavy lifting COMPARISON: None available. TECHNIQUE: Three views of the lumbosacral spine. FINDINGS: No significant scoliosis. There is normal lordosis. There is no subluxation. There is no compression deformity, fracture, or suspicious bone lesion. There is mild to moderate multilevel disc degeneration most significant spanning T12-L3. There is normal facet alignment. Mild degenerative facet changes are present. The sacrum is intact. The SI joints appear normal. There are vascular calcifications in the soft tissues. XR/XR lumbar spine 2-3V IMPRESSION: 1. No acute lumbar abnormality. 2. Mild to moderate multilevel disc degeneration. Electronically signed by: Hilton Hays MD 07/12/2025 11:26 AM EDT
[2025-07-12 11:03] VITALS: BP 165/72; PULSE 73; RESP 16; TEMP 36.3; O2SAT 95; BMI 37.1
--- NOTE | 2025-07-12 11:06 | ED_ITS ---
HPI - Back Pain/Injury General Chief Complaint: Back Pain/Injury Stated Complaint: back inj @ work 07/06 Time Seen by Provider: 07/12/25 12:41 Source: patient Mode of arrival: ambulatory Limitations: no limitations History of Present Illness ED Provider: Darlene Johnson PA-C HPI Narrative: Patient is a 59 year old assigned male at with no reported medical history presenting to the emergency department today with low back pain. Patient states that he injured his back at work several months ago and continues to have intermittent low back pain. Patient denies any other complaints at this time. Related Data Previous Rx's ?Medication ?Instructions ?Recorded cyclobenzaprine 10 mg tablet 10 mg PO BID PRN muscle s pasm #7 02/21/25 tabs naproxen 500 mg tablet 500 mg PO BID PRN pain #20 t abs 02/21/25 sulfamethoxazole 800 1 tab PO BID #14 tabs mg-trimethoprim 160 mg tablet (Bactrim DS) prednisone 20 mg tablet 40 mg (2 x 20 mg) PO DAILY C OPD 07/12/25 exacerbation 5 days #10 tabs Allergies Allergy/AdvReac Type Severity Reaction Status Date / Time Penicillins (PCN) Allergy Rash Verified 07/12/25 11:05 Review of Systems Constitutional: Constitutional: Reports as per HPI Eyes: Eyes: Reports as per HPI ENT: Reports as per HPI Cardiovascular: Cardiovascular: Reports as per HPI Respiratory: Respiratory: Reports as per HPI Gastrointestinal: Gastrointestinal: Reports as per HPI Genitourinary: Genitourinary: Reports as per HPI Musculoskeletal: Musculoskeletal: Reports as per HPI Integumentary/Breasts: Skin/Breast: Reports as per HPI Neurologic: Reports as per HPI Psychiatric: Psychiatric: Reports as per HPI Endocrine: Endocrine: Reports as per HPI Hematologic/Lymphatic: Hematologic/Lymphatic: Reports as per HPI Allergic/Immunologic: Allergic/Immunologic: Reports as per HPI [facility] Past Medical History Attestation statement: The following information was validated with the patient. Source: old records reviewed and nursing notes reviewed Social History Social History Substance Use Type: Marijuana Advance Directives: No Advance Directives Information Provided: No Physical Exam Vital Signs: Vital Signs: Last Vital Signs Temp 97.4 F 07/12/25 13:16 Pulse 73 07/12/25 13:16 Resp 16 07/12/25 13:16 BP 165/72 H 07/12/25 13:16 Pulse Ox 95 07/12/25 13:16 O2 Del Method Room Air 07/12/25 13:16 BMI result Body Mass Index 37.1 Const: General: cooperative, no acute distress, alert and awake Nutritional Appearance: well nourished Orientation/consciousness: patient oriented x3 HEENT: Head: Yes normal to inspection and Yes atraumatic Ears: hearing grossly normal bilaterally and external ears normal General nose exam: Normal external nose present, no nasal discharge noted and no epistaxis Face and sinus: Yes normal facial exam, No abrasion and No laceration Mouth: Normal oral and palatal mucosa present, no drooling and no muffled voice Eyes: General: appearance normal, both eyes and all related structures Periorbital: periorbital findings normal Eyelids: Yes eyelids normal Conjunctivae: conjunctivae normal Pupils: Equal, round and reactive pupils present EOM: EOMs intact bilaterally Neck: Neck: Yes normal visual inspection and Yes full ROM Resp: Effort & Inspection: normal respiratory effort and able to speak in complete sentences Neuro: General: patient oriented x3, moves all extremities and CN's II-XI intact bilaterally Cranial nerves: Yes Equal, round and reactive pupils present Cognition (Neuro): normal cognition Extrem: General: Yes normal to inspection, Yes full ROM and Yes capillary refill normal Psych: Appearance: grossly normal Mental Status: mental status grossly normal Affect: normal affect Attitude: cooperative Thought process: Normal thought process present Thought content: Normal thought content present Insight: Good insight present (Psych) Course Course Course Narrative: This is a Rapid Medical Examination (RME) performed by Dain Rivas PA-C in triage. Full HPI, ROS, assessment and treatment plan per primary provider in the Main ED. Hx: 59 yo M here for eval of left lower back pain after heavy lifting at work. no urinary sx. no back pain red flags. taking tylenol w/o relief. Plan: xrs Medications Administered Discontinued Medications Generic Name Dose Route Start Last Admin Trade Name Freq PRN Reason Stop Dose Admin Ketorolac Tromethamine 15 mg 07/12/25 13:09 07/12/25 13:16 Ketorolac Tromethamine 15 Mg/Ml Vial IM 07/12/25 13:10 15 mg ONCE ONE Administration Medical Decision Making Medical Decision Making [facility] Narrative: Patient is a 59 year old assigned male at with no reported medical history presenting to the emergency department today with low back pain. Patient's physical exam was unremarkable. Patient's lumbar x-ray showed no acute process but did show degenerative disc disease. Patient's clinical presentation and work up are most consistent with acute on chronic lumbar pain. I explained my physical exam findings as well as all test results to the patient. I answered all questions asked by the patient. Patient received IM Toradol while in the department. I stressed the importance of the patient taking his medication as directed (either prescribed or as the over the counter packaging recommends). I stressed the importance of the patient following up with his primary care provider and a college specialist. I stressed the importance of the patient returning to the emergency department immediately if his symptoms were to worsen or if he were to develop any dizziness, shortness of breath, difficulty breathing, chest pain, blurry vision, loss of vision, nausea, vomiting, abdominal pain, fever, chills, back pain, or any other complaints. Patient verbalized agreement and understanding with this treatment plan and discharge. Differential Diagnosis Differential Diagnoses: The differential diagnosis associated with the presentation includes Lumbar radiculopathy Lumbar pain Lumbar strain Lumbar sprain Acute on chronic low back pain Admission/Observation Consideration of admission/observation: Escalation of care including admission/observation considered Patient would have been admitted to the hospital had his work up had any fin dings where hospital admission was appropriate and his clinical presentation warranted hospital admission. Independent Interpretation I performed an independent interpretation of an: Plain X-Ray Interpretation: My interpretation is in agreement with the radiologist's impression of this imaging study. Reason for Exam: L sided back pain s/p heavy lifting EXAMINATION: XR LUMBOSACRAL SPINE CLINICAL INFORMATION: L sided back pain s/p heavy lifting COMPARISON: None available. TECHNIQUE: Three views of the lumbosacral spine. FINDINGS: No significant scoliosis. There is normal lordosis. There is no subluxation. There is no compression deformity, fracture, or suspicious bone lesion. There is mild to moderate multilevel disc degeneration most significant spanning T12-L3. There is normal facet alignment. Mild degenerative facet changes are present. The sacrum is intact. The SI joints appear normal. There are vascular calcifications in the soft tissues. XR/XR lumbar spine 2-3V IMPRESSION: 1. No acute lumbar abnormality. 2. Mild to moderate multilevel disc degeneration. Electronically signed by: Hilton Hays MD 07/12/2025 11:26 AM EDT RP Dictated By: Hilton Hays MD Signed By: Electronically signed by Hilton Hays MD 07/12/25 1126 Radiology Impression Discussion of test interpretation with radiology: I have reviewed the radiologist's reading. Discharge Plan Discharge Clinical Impression: Strain of lumbar region Patient Disposition: Home, Self-Care Instructions: Back Pain (ED) Additional Instructions: Your x-ray showed evidence of degenerative disc disease but no fracture. Take your medication as prescribed. Follow up with a college specialist. IF you are prescribed home medications and/or you are taking over the counter medications at home - it is very important you continue to do so as prescribed / directed unless told otherwise. Follow up with a primary care provider. Return to the emergency department immediately if your symptoms worsen or if you develop any numbness, tingling, dizziness, shortness of breath, difficulty breathing, chest pain, blurry vision, loss of vision, nausea, vomiting, abdominal pain, fever, chills, back pain, or any other complaints. If you do not have a primary care provider - call any of the below numbers to establish and follow up with a primary care provider. [facility] ([place] [phone] [place] [address], [address] [facility] ([address] [place] [address]) [phone] [place] [address], [address] [facility], [address] [facility] ([address]) [phone] [place] [address], [address] [place], [address] [facility] ([place]) [phone] [place] [address], [address] [place], [address] [facility] [phone] [address] [facility], [address] Please see the information below about our Patient Portal. If you are not yet enrolled in the [facility] Patient Portal, you will receive an enrollment email invitation following your visit to any [facility] setting. You may also self-enroll in the Patient Portal by visiting our website: [email or web address] The following information is required to access the Patient Portal: - Your [facility] Medical Record Number - Your personal home email address (must match what is in your electronic medical record, Registration staff can assist with this) - Name - Date of Capabilities of the Patient Portal: - Message some providers - View upcoming appointments - Access your health summary, medical history, and visit history - View current conditions and allergies - View procedure and lab results - View your medications, including guidelines, side effects, and precautions - Complete pre-appointment questionnaires requested by your provider - Ready summary reports of your office visits and procedures To access the Patient Portal Mobile [facility], follow these directions: - Search [email or web address] in the [facility] Store or Google [facility] Store - Download the [facility] - Search for [facility] - Enter your login/password Prescriptions: New prednisone 20 mg tablet 40 mg PO DAILY 5 Days Qty: 10 0RF No Action naproxen 500 mg tablet 500 mg PO BID PRN (Reason: pain) Qty: 20 0RF cyclobenzaprine 10 mg tablet 10 mg PO BID PRN (Reason: muscle spasm) Qty: 7 0RF sulfamethoxazole-trimethoprim [Bactrim DS] 800-160 mg tablet 1 tab PO BID Qty: 14 0RF Referrals: [facility] [Provider Group, Neurosurgery] Referral Note: Call to establish and follow up with a college specialist. Stand Alone Forms: Work/School Release Interventions: ED Discharge Assessment Last Done: 07/12/25 13:16 Discharge Date/Time: 07/12/25 13:25 Print Language: Surinamese
[2025-07-12 13:16] VITALS: BP 165/72; PULSE 73; RESP 16; TEMP 36.3; O2SAT 95
== END 2025-07-12 13:25 | disposition home or self-care (01) ==
PROVIDERS: Emergency Provider Emergency Medicine
DX: S39.012A Strain of muscle, fascia and tendon of lower back, initial encounter (principal); X50.1XXA Overexertion from prolonged static or awkward postures, initial encounter; Y93.9 Activity, unspecified; Y92.9 Unspecified place or not applicable; Y99.0 Civilian activity done for income or pay
CPT/HCPCS: 72100; 96372; 99283; 99284; J1885

== ENCOUNTER → 2025-07-12 11:08 | Outpatient (BNV) | payer SELFPAY | PROVIDERS: Visit Provider Radiology Diagnostic Radiology | DX: M51.360 Other intervertebral disc degeneration, lumbar region with discogenic back pain only (principal) | CPT/HCPCS: 72100 ==